=== PATIENT | female | born 1990 | race Caucasian/White ===

== ENCOUNTER 2020-04-28 12:02 | Emergency (ER) | payer OTHER ==
[~2020-04-28] VITALS: Ht 162.6 cm; Wt 110.0 kg
--- NOTE | 2020-04-28 12:47 | PHYS DOC ---
Past History Past Medical History: Diabetes (YESENIA HERNANDEZ APRN) Past Surgical History: Other Additional Past Surgical Histo: ovarian cyst laparscopic removal (YESENIA HERNANDEZ APRN) Alcohol Use: None (YESENIA HERNANDEZ APRN) General Adult EDM: Chief Complaint: SHORTNESS OF BREATH HPI: HPI: Patient is a 29-year-old female who presents with throat tightness that started today at 930 while she was at work. Patient also reports chest tightness but states that is normal for her due to her asthma. Patient reports using her albuterol inhaler when symptoms started which relieved her chest tightness. Patient states that she is still able to to drink water with no issues. Patient is able to manage her own secretions. Patient denies any chest pain, shortness of breath. Patient denies any recent illness, fever. Patient has history of diabetes and asthma. (YESENIA HERNANDEZ APRN) Review of Systems: Review of Systems: Constitutional: Denies fever or chills Eyes: Denies change in visual acuity HENT: Denies nasal congestion, reports throat tightness Respiratory: Denies cough or shortness of breath Cardiovascular: Denies chest pain or edema GI: Denies abdominal pain, nausea, vomiting, bloody stools or diarrhea : Denies dysuria Musculoskeletal: Denies back pain or joint pain Integument: Denies rash Neurologic: Denies headache, focal weakness or sensory changes Endocrine: Denies polyuria or polydipsia Lymphatic: Denies swollen glands Psychiatric: Denies depression or anxiety (YESENIA HERNANDEZ APRN) Allergies: Allergies: Allergies Coded Allergies Type Severity Reaction Last Updated Verified No Known Drug Allergies 04/28/20 No (YESENIA HERNANDEZ APRN) Physical Exam: PE: Constitutional: Well developed, well nourished, no acute distress, non-toxic appearance. [] HENT: Normocephalic, atraumatic, bilateral external ears normal, oropharynx moist, no oral exudates, nose normal. [] Eyes: PERRLA, EOMI, conjunctiva normal, no discharge. [] Neck: Normal range of motion, no tenderness, supple, no stridor. [] Cardiovascular:Heart rate regular rhythm, no murmur [] Lungs & Thorax: Bilateral breath sounds clear to auscultation [] Abdomen: Bowel sounds normal, soft, no tenderness, no masses, no pulsatile masses. [] Skin: Warm, dry, no erythema, no rash. [] Back: No tenderness, no CVA tenderness. [] Extremities: No tenderness, no cyanosis, no clubbing, ROM intact, no edema. [] Neurologic: Alert and oriented X 3, normal motor function, normal sensory function, no focal deficits noted. [] Psychologic: Affect normal, judgement normal, mood normal. [] (YESENIA HERNANDEZ APRN) Current Patient Data: Vital Signs: Vital Signs Date Time Temp Pulse Resp B/P (MAP) Pulse Ox O2 Delivery O2 Flow Rate FiO2 04/28/20 12:20 98.0 101 20 142/85 (104) 99 Room Air (YESENIA HERNANDEZ APRN) EKG: EKG: [] (YESENIA HERNANDEZ APRN) Radiology/Procedures: Radiology/Procedures: [] (YESENIA HERNANDEZ APRN) Heart Score: Risk Factors: Risk Factors: DM, Current or recent (<one month) smoker, HTN, HLP, family history of CAD, obesity. Risk Scores: Score 0 - 3: 2.5% MACE over next 6 weeks - Discharge Home Score 4 - 6: 20.3% MACE over next 6 weeks - Admit for Clinical Observation Score 7 - 10: 72.7% MACE over next 6 weeks - Early Invasive Strategies (YESENIA HERNANDEZ APRN) Course & Med Decision Making: Course & Med Decision Making Pertinent Labs and Imaging studies reviewed. (See chart for details) []Patient is a 29-year-old female who presents with throat tightness that started today at 930 while she was at work. Patient also reports chest tightness but states that is normal for her due to her asthma. Patient reports using her albuterol inhaler when symptoms started which relieved her chest tightness. Patient states that she is still able to to drink water with no issues. Patient is able to manage her own secretions. Patient denies any chest pain, shortness of breath. Patient denies any recent illness, fever. Patient has history of diabetes and asthma. Lung sounds are clear throughout, tongue is not swollen, no trismus or airway obstruction. We will order Benadryl and reassess symptoms.Patient is not refusing Benadryl. "its makes me drowsy and I would rather take it at home". Discharging patient to home with medrol pack. Patient is going to call her PCP for follow up. Patient has appointment with specialist on 05/07.Patient requesting a work note for today and tomorrow. "Im concerned about losing my job because they said Im calling in too much". Impression 1.Asthma Exacerbation 2.Hx of asthma (YESENIA HERNANDEZ APRN) Dragon Disclaimer: Dragon Disclaimer: This electronic medical record was generated, in whole or in part, using a voice recognition dictation system. (YESENIA HERNANDEZ APRN) Departure Departure: Impression: Primary Impression: Bronchospasm, acute Additional Impression: Asthma exacerbation, non-allergic Qualified Codes: J45.31 - Mild persistent asthma with (acute) exacerbation Disposition: DC HOME SELF CARE/HOMELESS Condition: IMPROVED Referrals: LENNIE KRAUSE (PCP) Patient Instructions: Bronchospasm, [id number] Additional Instructions: EMERGENCY DEPARTMENT GENERAL DISCHARGE INSTRUCTIONS Thank you for coming to [facility] (ED) today and trusting us with you care. We trust that you had a positivie experience in our Emergency Department. If you wish to speak to the department management, you may call the director at [phone]. YOUR FOLLOW UP INSTRUCTIONS ARE FOLLOWS: 1. Do you have a private Doctor? If you do not have a private doctor, please ask for a resource list of physicians or clinics that may be able to assist you with follow up care. 2. The Emergency Physician has interpreted your x-rays. The X-Ray specialist will also review them. If there is a change in the findings, you will be notified in 48 hours when at all possible. 3. A lab test or culture has been done, your results will be reviewed and you will be notified if you need a change in treatment. ADDITIONAL INSTRUCTIONS AND INFORMATION: 1. Your care today has been supervised by a physician who is specially trained in emergency care. Many problems require more than one evaluation for a complete diagnosis and treatment. We recommend that you schedule your follow up appointment as recommended to ensure complete treatment of you illness or injury. If you are unable to obtain follow up care and continue to have a problem, or if your condition worsens, we recommend that you return to the ED. 2. We are not able to safely determine your condition over the phone nor are we able to give sound medical advice over the phone. For these safety reasons, if you call for medical advice we will ask you to come to the ED for further evaluation. 3. If you have any questions regarding these discharge instructions please call the ED at [phone]. SAFETY INFORMATION: In the interest of safety, wellness, and injury prevention; we encourage you to wear your sealbelt, if you smoke; quite smoking, and we encourage family to use a p rotective helmet for bicycling and other sporting events that present an increased risk for head injury. IF YOUR SYMPTOMS WORSEN OR NEW SYMPTOMS DEVELOP, OR YOU HAVE CONCERNS ABOUT YOUR CONDITION; OR IF YOUR CONDITION WORSENS WHILE YOU ARE WAITING FOR YOUR FOLLOW UP APPOINTMENT; EITHER CONTACT YOUR PRIMARY CARE DOCTOR, THE PHYSICIAN WHOSE NAME AND NUMBER YOU WERE GIVEN, OR RETURN TO THE ED IMMEDIATELY. Scripts Methylprednisolone (MEDROL) 4 Mg Tab.ds.pk 1 PKG PO UD for inflammation for 6 Days, #1 PKG 0 Refills Prov: YESENIA HERNANDEZ APRN 04/28/20 Attending Signature Attending Signature I have reviewed the PA/FIRE DEPARTMENT BATTALION CHIEF's note and plan of care. I was available for consultation as needed during the patient's visit in the emergency department. I agree with the clinical impression, plan, and disposition. (AIDEE COOPER DO) YESENIA HERNANDEZ APRN Apr 28, 2020 12:47 AIDEE COOPER DO Apr 29, 2020 16:28
[2020-04-28] MEDS ORDERED: diphenhydrAMINE HCL 25 MG CAPSULE PO ONE (13:00)
[2020-04-28 13:10] VITALS: BP 141/82
[2020-04-28] MEDS ORDERED: METH4TAB2 PO (13:22)
== END 2020-04-28 13:38 | disposition home or self-care (01) ==
LOC: ER 12:02
DX: J45.31 Mild persistent asthma with (acute) exacerbation (principal); E11.9 Type 2 diabetes mellitus without complications
CPT/HCPCS: 99283

== ENCOUNTER 2020-08-04 19:09 | Emergency (ER) | payer OTHER ==
[~2020-08-04] VITALS: Ht 162.6 cm; Wt 106.0 kg
[~2020-08-04 19:09] MED LIST: METH4TAB2 PO
[2020-08-04 20:17] LABS: U PREG PATIENT NEGATIVE (NEG)
[2020-08-04 20:19] LABS: BILIRUBIN,URINE SMALL (NEG); CLARITY,URINE CLOUDY; COLOR,URINE RED; GLUCOSE,URINE NEG (NEG); NITRITE,URINE POS (NEG)
[2020-08-04 20:20] LABS: BACTERIA,URINE MOD /HPF (0-FEW); RBC,URINE TNTC /HPF (0-2)
[2020-08-04 20:21] LABS: SQUAMOUS EPITHELIAL CELL,UR OCC /LPF
[2020-08-04 21:07] LABS: BASO # 0.1 x10^3/uL (0.0-0.2); BASO % 1 % (0-3); EOS # 0.1 x10^3/uL (0.0-0.7); EOS % 1 % (0-3); HEMATOCRIT 40.9 % (36.0-47.0); HEMOGLOBIN 13.9 g/dL (12.0-15.5); LYMPH # 2.7 x10^3/uL (1.0-4.8); LYMPH % 25 % (24-48); MEAN CORPUSCULAR HEMOGLOBIN 32 pg (25-35); MEAN CORPUSCULAR HGB CONC 34 g/dL (31-37); MEAN CORPUSCULAR VOLUME 94 fL (79-100); MONO # 0.8 x10^3/uL (0.0-1.1); MONO % 7 % (0-9); NEUT % 66 % (31-73); PLATELET COUNT 229 x10^3/uL (140-400); RED BLOOD COUNT 4.35 x10^6/uL (3.50-5.40); RED CELL DISTRIBUTION WIDTH 13.2 % (11.5-14.5); WHITE BLOOD COUNT 10.6 x10^3/uL (4.0-11.0)
[2020-08-04 21:14] VITALS: BP 158/88
--- NOTE | 2020-08-04 21:26 | PHYS DOC ---
Past History Past Medical History: Diabetes, Other Additional Past Medical Histor: irregular menses Past Surgical History: Other Additional Past Surgical Histo: ovarian cyst laparscopic removal Alcohol Use: None Adult General Chief Complaint Chief Complaint: VAGINAL PROBLEM HPI HPI Patient is a 22-year-old female who presents with a chief complaint of menstrual cycle cramps and bleeding more than usual. States she started her menstrual cycle a couple days ago and it seemed a little heavier than usual today. States that she had some nausea with this as well but no vomiting. Denies any recent travel, illnesses, fevers, chest pain, shortness of breath, other abdominal pain, emesis, diarrhea. States that she has had some urinary frequency however. Requesting a work note for tomorrow stating she is worried she is going to have menstrual cramps tomorrow. Review of Systems Review of Systems Review of systems otherwise unremarkable except noted in HPI [] Allergies Allergies Allergies Coded Allergies Type Severity Reaction Last Updated Verified No Known Drug Allergies 04/28/20 No Physical Exam Physical Exam Constitutional: Well developed, well nourished, no acute distress, non-toxic appearance. [] HENT: Normocephalic, atraumatic, bilateral external ears normal, oropharynx moist, no oral exudates, nose normal. [] Eyes: conjunctiva normal, no discharge. [] Neck: Normal range of motion, Cardiovascular:Heart rate regular rhythm, no murmur [] Lungs & Thorax: Bilateral breath sounds clear to auscultation [] Abdomen: soft, no tenderness, no masses, no pulsatile masses. [] Skin: Warm, dry, no erythema, no rash. [] Back: no CVA tenderness. [] Extremities: No tenderness, no cyanosis, no clubbing, ROM intact, no edema. [] Neurologic: Alert and oriented X 3, no focal deficits noted. [] Psychologic: Affect normal, judgement normal, mood normal. [] Current Patient Data Vital Signs Vital Signs Date Time Temp Pulse Resp B/P (MAP) Pulse Ox O2 Delivery O2 Flow Rate FiO2 08/04/20 19:15 98.5 95 18 149/93 (111) 96 Room Air Lab Results Laboratory Tests Test 08/04/20 19:15 08/04/20 20:44 Urine Collection Type Unknown Urine Color Red Urine Clarity Cloudy Urine pH 8.5 Urine Specific [place] 1.020 Urine Protein >100 mg/dl (NEG-TRACE) Urine Glucose (UA) Neg mg/dL (NEG) Urine Ketones (Stick) Trace mg/dL (NEG) Urine Blood Large (NEG) Urine Nitrite Pos (NEG) Urine Bilirubin Small (NEG) Urine Urobilinogen Dipstick 1.0 mg/dL (0.2 mg/dL) Urine Leukocyte Esterase Neg (NEG) Urine RBC Tntc /HPF (0-2) Urine WBC 1-4 /HPF (0-4) Urine Squamous Epithelial Cells Occ /LPF Urine Bacteria Mod /HPF (0-FEW) Urine Test Negative (NEG) White Blood Count 10.6 x10^3/uL (4.0-11.0) Red Blood Count 4.35 x10^6/uL (3.50-5.40) Hemoglobin 13.9 g/dL (12.0-15.5) Hematocrit 40.9 % (36.0-47.0) Mean Corpuscular Volume 94 fL (79-100) Mean Corpuscular Hemoglobin 32 pg (25-35) Mean Corpuscular Hemoglobin Concent 34 g/dL (31-37) Red Cell Distribution Width 13.2 % (11.5-14.5) Platelet Count 229 x10^3/uL (140-400) Neutrophils (%) (Auto) 66 % (31-73) Lymphocytes (%) (Auto) 25 % (24-48) Monocytes (%) (Auto) 7 % (0-9) Eosinophils (%) (Auto) 1 % (0-3) Basophils (%) (Auto) 1 % (0-3) Neutrophils # (Auto) 7.0 x10^3uL (1.8-7.7) Lymphocytes # (Auto) 2.7 x10^3/uL (1.0-4.8) Monocytes # (Auto) 0.8 x10^3/uL (0.0-1.1) Eosinophils # (Auto) 0.1 x10^3/uL (0.0-0.7) Basophils # (Auto) 0.1 x10^3/uL (0.0-0.2) EKG EKG [] Radiology/Procedures Radiology/Procedures [] Heart Score C/O Chest Pain: No Risk Factors: Risk Factors: DM, Current or recent (<one month) smoker, HTN, HLP, family history of CAD, obesity. Risk Scores: Risk Factors: DM, Current or recent (<one month) smoker, HTN, HLP, family history of CAD, obesity. Course & Med Decision Making Course & Med Decision Making Patient is a 22-year-old female who presents on her menstrual cycle with cramps and nausea requesting a work note Vital signs not concerning. Physical exam noted above. Laboratory analysis notable for nitrite positive UTI. Patient denied need for nausea medicine at this time stating she was feeling better. Started on Cipro in the ED. Given work note for tomorrow Advised to call primary care first thing in the morning. Gave return precaut ions to the ED. Patient grateful, verbalized understanding and agreed with plan of discharge. [] Dragon Disclaimer Dragon Disclaimer This electronic medical record was generated, in whole or in part, using a voice recognition dictation system. Departure Departure: Impression: Primary Impression: Urinary tract infection Additional Impression: Menstrual cycle problem Disposition: HOME / SELF CARE / HOMELESS Condition: GOOD Referrals: LENNIE KRAUSE (PCP) Patient Instructions: Urinary Tract Infection Additional Instructions: Please read all the attached information carefully. Please take all your antibiotics as prescribed. Please call your primary care physician first thing in the morning to update on ED visit and set up a follow-up appointment. Please come back to the ED with new or concerning symptoms as discussed. Scripts Cephalexin (CEPHALEXIN) 500 Mg Capsule 1 CAP PO BID for UTI for 5 Days, #10 CAP Prov: JAZMYNE BE MD 08/04/20 Problem Qualifiers JAZMYNE BE MD August 04, 2020 21:26
[2020-08-04] MEDS ORDERED: CEPH500C PO (21:32)
[2020-08-04] MEDS ORDERED: CEPHALEXIN 250 MG CAPSULE PO ONE (21:45)
[2020-08-04] MEDS ORDERED: KETOROLAC 30 MG/ML VIAL. IM ONE (22:00)
== END 2020-08-04 21:50 | disposition home or self-care (01) ==
LOC: ER 19:09
DX: N39.0 Urinary tract infection, site not specified (principal); N94.6 Dysmenorrhea, unspecified; E11.9 Type 2 diabetes mellitus without complications
CPT/HCPCS: 36415; 81001; 81025; 85025; 87086; 96372; 99283; J1885

== ENCOUNTER → 2020-08-20 | Outpatient (CLI) | payer OTHER ==
[2020-08-04 21:14] VITALS: BP 158/88
[~2020-08-20] MED LIST changes: +CEPH500C PO
--- NOTE | 2020-08-20 16:07 | RAD ---
EXAM: Pelvic ultrasound HISTORY: Dysmenorrhea, menorrhagia. COMPARISON: None. FINDINGS: Sonographic evaluation of the pelvis was performed transabdominally and transvaginally. The uterus is anteverted and measures 9.0 x 4.7 x 3.0 cm. The endometrial stripe measures 9 mm. No ma sses are identified. There is no significant free fluid. The right ovary measures 4.1 x 3.7 x 3.1 cm. It contains a simple dominant follicle or small cyst owen suring 2.6 x 2.3 cm. The left ovary measures 2.3 x 1.8 x 1.3 cm. There is normal Doppler flow bilater ally. There are no suspicious lesions. IMPRESSION: 1. Normal endometrial thickness. No abnormality is identified. Electronically signed by: Kita Salazar MD (08/20/2020 4:05 PM) [facility]
== END ==
LOC: US 13:58
PROVIDERS: ATTEND Obstetrics & Gynecology
DX: N92.0 Excessive and frequent menstruation with regular cycle (principal); N94.6 Dysmenorrhea, unspecified
CPT/HCPCS: 76856

== ENCOUNTER 2021-08-31 08:25 | Emergency (ER) | payer OTHER ==
[~2021-08-31] VITALS: Ht 154.9 cm; Wt 110.4 kg
--- NOTE | 2021-08-31 08:44 | PHYS DOC ---
Past History Past Medical History: Diabetes, Other Additional Past Medical Histor: irregular menses Past Surgical History: Other Additional Past Surgical Histo: ovarian cyst laparscopic removal Alcohol Use: None General Adult HPI: HPI: Patient is a 31-year-old female who presents with report of diffuse low pelvic pain and irregular vaginal bleeding. She had a menstrual cycle earlier this month, which lasted for about 5 days, then 2 days ago she began bleeding again, she reports heavy vaginal bleeding, and she is gone through 15 pads since last night. She does report feeling lightheaded/dizzy. She denies urinary symptoms. She denies nausea, vomiting, diarrhea, constipation. She has had a previous ovarian cyst removal, she thinks it was her left ovary but she is not sure. It does not sound like she had a torsion. She is not currently taking control or exogenous hormone. No recent cessation of exogenous hormones. She denies any focal or localized pain. She denies back or flank pain. She denies fall, trauma, injury, syncope or near syncope. Review of Systems: Review of Systems: Constitutional: Denies fever or chills Respiratory: Denies cough or shortness of breath Cardiovascular: Denies chest pain or edema GI: Reports diffuse lower abdominal/pelvic pain. Denies nausea, vomiting, diarrhea, constipation. : Denies urinary symptoms. She reports diffuse pelvic pain and vaginal bleeding. Musculoskeletal: Denies back pain or joint pain Integument: Denies rash Neurologic: Denies headache, focal weakness or sensory changes Psychiatric: Denies depression or anxiety Allergies: Allergies: Allergies Coded Allergies Type Severity Reaction Last Updated Verified No Known Drug Allergies 04/28/20 No Physical Exam: PE: Constitutional: Well developed, well nourished, no acute distress, non-toxic appearance. [] HENT: Normocephalic, atraumatic Eyes: Conjunctiva normal, no discharge. [] Neck: Normal range of motion, no tenderness, supple, no stridor. [] Cardiovascular:Heart rate regular rhythm, +2 radial and +2 posterior tibial pulses bilaterally Lungs & Thorax: Lungs are clear to auscultation bilaterally without rales, rhonchi or wheezes. Abdomen: Abdomen is obese, soft, nondistended, I am unable to elicit any tenderness on exam, no rebound, no rigidity, no guarding, normal bowel sounds, no CVA tenderness, no flank abdominal ecchymoses. No palpable pulsatile mass. Skin: Warm, dry, no erythema, no rash. [] Back: No tenderness, no CVA tenderness. [] Extremities: No tenderness, no cyanosis, no clubbing, ROM intact, no edema. [] Neurologic: Alert and oriented X 3, normal motor function, normal sensory function, no focal deficits noted. [] Psychologic: Affect normal, judgement normal, mood normal. [] EKG: EKG: [] Radiology/Procedures: Radiology/Procedures: IMAGING REPORT Signed PATIENT: JOAQUIN HUSSEIN ACCOUNT: [id number] : 1990 LOCATION: ER AGE: 31 SEX: F EXAM STATUS: REG ER ORD. PHYSICIAN: LAUREN SHEPHERD DO REASON: pelvic pain PROCEDURE: PELVIS COMPLETE US PELVIS COMPLETE History: Pelvic pain Comparison: 08/20/2020 Technique: Sonographic examination of the pelvis was performed with transabdominal technique. Findings: Uterus- Uterine parenchyma: Homogeneous without fibroids. Uterine measurements: 10.3 x 4.6 x 5.2 cm Cervix: Unremarkable. Endometrium- Endometrial Stripe: No abnormal fluid collections in the endometrial cavity, no obvious mass, and no abnormal blood flow within the endometrium by Doppler. Thickness: 10 mm. Adnexa- Right Ovary: Identified and appears normal. Size: 2.4 x 2.4 x 3.8 cm Doppler: Normal. Left Ovary: Identified and appears normal. Size: 1.3 x 1.6 x 1.5 cm Doppler: Normal. Other: No abnormal adnexal masses. No abnormal free fluid in the pelvis. Impression: 1. Unremarkable pelvic ultrasound. Electronically signed by: Bridger Can MD (08/31/2021 9:37 AM) [id number] DICTATED AND SIGNED BY: BRIDGER CAN MD DATE: 08/31/21 0931 CC: LAUREN SHEPHERD DO; LENNIE KRAUSE ~ Heart Score: C/O Chest Pain: No Risk Factors: Risk Factors: DM, Current or recent (<one month) smoker, HTN, HLP, family history of CAD, obesity. Risk Scores: Score 0 - 3: 2.5% MACE over next 6 weeks - Discharge Home Score 4 - 6: 20.3% MACE over next 6 weeks - Admit for Clinical Observation Score 7 - 10: 72.7% MACE over next 6 weeks - Early Invasive Strategies Course & Med Decision Making: Course & Med Decision Making Pertinent Labs and Imaging studies reviewed. (See chart for details) The patient is given IV fluids and IV morphine. She is resting comfortably. She has stable vital signs, she has a benign, nonsurgical abdominal exam. Pelvic ultrasound is unremarkable. Laboratory exams are unremarkable. Urinalysis demonstrates blood, gross hematuria, likely from vaginal etiology, no bacteria. Urine culture is pending. No indication for antibiotics at this time, will await urine culture. I have discussed all of the findings, differential diagnosis and plan of care with the patient. 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 Return precautions are given. She verbalizes understanding and is comfortable with the plan of care. She requested a work excuse for today, this is provided. Dragon Disclaimer: Dragon Disclaimer: This electronic medical record was generated, in whole or in part, using a voice recognition dictation system. Departure Departure: Impression: Primary Impression: Pelvic pain Additional Impression: Abnormal vaginal bleeding Disposition: HOME / SELF CARE / HOMELESS Condition: STABLE Referrals: LENNIE KRAUSE (PCP) Patient Instructions: Abnormal Uterine Bleeding, Dysmenorrhea, Pelvic Pain, Female Additional Instructions: Use the medication as needed/as directed. Return to the ER for more severe pain, heavy or uncontrolled bleeding, severe dizziness, passing out, focal weakness, if you are acutely injured, if you develop uncontrolled vomiting, dehydration, temperature of 100.4 or higher or for any other concerns. Please contact your primary care physician and ammunition components inspector for further evaluation and for follow-up. Scripts Tramadol Hcl (ULTRAM) 50 Mg Tablet 1 TAB PO PRN Q6HRS PRN for pain MDD 4 Tablet(s), #15 TAB 0 Refills Prov: LAUREN SHEPHERD DO 08/31/21 Ibuprofen (IBUPROFEN) 800 Mg Tablet 1 TAB PO TID for pain, #20 TAB 1 Refill Prov: LAUREN SHEPHERD DO 08/31/21 CORALAUREN Palma DO August 31, 2021 08:44
[2021-08-31] MEDS ORDERED: MORPHINE SULFATE 4 MG/ML DISP.SYRIN. IV ONE (09:00)
[2021-08-31] MEDS ORDERED: IV NORMAL SALINE 1,000ML 1,000 ML IV ONE (09:00)
--- NOTE | 2021-08-31 09:40 | RAD ---
US PELVIS COMPLETE History: Pelvic pain Comparison: 08/20/2020 Technique: Sonographic examination of the pelvis was performed with transabdominal technique. Findings: Uterus- Uterine parenchyma: Homogeneous without fibroids. Uterine measurements: 10.3 x 4.6 x 5.2 cm Cervix: Unremarkable. Endometrium- Endometrial Stripe: No abnormal fluid collections in the endometrial cavity, no obvious mass, and no abnormal blood flow within the endometrium by Doppler. Thickness: 10 mm. Adnexa- Right Ovary: Identified and appears normal. Size: 2.4 x 2.4 x 3.8 cm Doppler: Normal. Left Ovary: Identified and appears normal. Size: 1.3 x 1.6 x 1.5 cm Doppler: Normal. Other: No abnormal adnexal masses. No abnormal free fluid in the pelvis. Impression: 1. Unremarkable pelvic ultrasound. Electronically signed by: Bridger Negron MD (08/31/2021 9:37 AM) [id number]
[2021-08-31 10:06] LABS: BASO # 0.1 x10^3/uL (0.0-0.2); BASO % 1 % (0-3); EOS # 0.1 x10^3/uL (0.0-0.7); EOS % 1 % (0-3); HEMATOCRIT 41.6 % (36.0-47.0); HEMOGLOBIN 14.3 g/dL (12.0-15.5); LYMPH # 2.1 x10^3/uL (1.0-4.8); LYMPH % 26 % (24-48); MEAN CORPUSCULAR HEMOGLOBIN 32 pg (25-35); MEAN CORPUSCULAR HGB CONC 34 g/dL (31-37); MEAN CORPUSCULAR VOLUME 94 fL (79-100); MONO # 0.5 x10^3/uL (0.0-1.1); MONO % 6 % (0-9); NEUT # 5.2 x10^3uL (1.8-7.7); NEUT % 65 % (31-73); PLATELET COUNT 200 x10^3/uL (140-400); RED BLOOD COUNT 4.42 x10^6/uL (3.50-5.40); RED CELL DISTRIBUTION WIDTH 12.9 % (11.5-14.5)
[2021-08-31 10:14] LABS: CALCIUM 8.7 mg/dL (8.5-10.1); CREATININE 0.7 mg/dL (0.6-1.0); GFR 98.3; POTASSIUM 3.7 mmol/L (3.5-5.1)
[2021-08-31 10:19] LABS: ALBUMIN 3.4 g/dL (3.4-5.0); ALBUMIN/GLOBULIN RATIO 0.9 (1.0-1.7); TOTAL BILIRUBIN 0.3 mg/dL (0.2-1.0)
[2021-08-31 11:07] LABS: PREG TEST PT QUAL NEGATIVE (NEG)
[2021-08-31 11:15] VITALS: BP 142/65
[2021-08-31 11:25] LABS: CLARITY,URINE BLOODY; COLOR,URINE RED
[2021-08-31 11:26] LABS: BACTERIA,URINE 0 /HPF (0-FEW); RBC,URINE TNTC /HPF (0-2); SQUAMOUS EPITHELIAL CELL,UR FEW /LPF
[2021-08-31] MEDS ORDERED: IBUP800T19 PO (11:39)
[2021-08-31] MEDS ORDERED: TRAM-48 PO (11:39)
== END 2021-08-31 11:54 | disposition home or self-care (01) ==
LOC: ER 08:25
DX: N93.8 Other specified abnormal uterine and vaginal bleeding (principal); R10.2 Pelvic and perineal pain; E11.9 Type 2 diabetes mellitus without complications
CPT/HCPCS: 36415; 76856; 80053; 81001; 83690; 84703; 85025; 87086; 87147; 96361; 96374; 99284; J2270; J7030